=== PATIENT | male | born 1965 | race Caucasian/White ===

== ENCOUNTER 2021-08-30 17:19 | Inpatient (IN) | payer MEDICAID ==
[~2021-08-30] VITALS: Ht 180.3 cm; Wt 104.5 kg
[~2021-08-30 17:19] MED LIST: HYDR25SU33 RC
[2021-08-30 18:16] LABS: BASOPHILS # (AUTO) 0.1 X10'3 (0-0.2); BASOPHILS % (AUTO) 0.8 % (0-1); EOSINOPHILS # (AUTO) 0.1 X10'3 (0-0.9); EOSINOPHILS % (AUTO) 1.5 % (0-6); HEMATOCRIT 49.5 % (42.0-52.0); HEMOGLOBIN 16.4 g/dl (14.0-17.9); LYMPHOCYTES # (AUTO) 2.4 X10'3 (1.1-4.8); LYMPHOCYTES % (AUTO) 28.1 % (21-51); MEAN CORPUSCULAR HEMOGLOBIN 29.8 PG (27.0-31.0); MEAN CORPUSCULAR HGB CONC 33.2 g/dL (33.0-36.5); MEAN CORPUSCULAR VOLUME 89.7 FL (78-98); MEAN PLATELET VOLUME 8.1 FL (7.4-10.4); MONOCYTES % (AUTO) 11.7 % (2-12); NEUTROPHILS # (AUTO) 4.9 X10'3 (1.8-7.7); NEUTROPHILS % (AUTO) 57.9 % (42-75); PLATELET COUNT 195 X10'3 (140-440); RED BLOOD COUNT 5.52 X10'6 (4.70-6.10); RED CELL DISTRIBUTION WIDTH 14.8 % (11.5-14.5); WHITE BLOOD COUNT 8.4 X10'3 (4.5-11.0)
[2021-08-30 18:32] LABS: ALANINE AMINOTRANSFERASE 69 U/L (12-78); ALBUMIN/GLOBULIN RATIO 1.3 (1.1-1.5); ALKALINE PHOSPHATASE 48 IU/L (46-116); ANION GAP 3 (8-16); ASPARTATE AMINO TRANSFERASE 31 U/L (10-37); BILIRUBIN,TOTAL 0.3 MG/DL (0.1-1.0); BLOOD UREA NITROGEN 11 MG/DL (7-18); BUN/CREATININE RATIO 9.9 (5.4-32.0); CALCIUM 9.3 MG/DL (8.5-10.1); CHLORIDE 105 MMOL/L (99-107); CREATININE 1.11 MG/DL (0.60-1.10); GLUCOSE 90 MG/DL (70-104); POTASSIUM 3.9 MMOL/L (3.5-5.1); SODIUM 137 MMOL/L (135-145); TOTAL CARBON DIOXIDE 29.5 MMOL/L (24-32); TOTAL PROTEIN 7.2 G/DL (6.4-8.2); eGFR 69 ML/MIN
--- NOTE | 2021-08-30 20:22 | NUR ---
RN agrees with cash posting representative assesment
[2021-08-30] MEDS ORDERED: aspirin 325mg tablet PO ONE (21:10)
[2021-08-30] MEDS ORDERED: LORazepam 0.5 MG tablet PO PRN (21:15)
[2021-08-30] MEDS ORDERED: OMEP40CA21 PO (22:22)
[2021-08-30] MEDS ORDERED: ANAS1TAB49 PO (22:22)
[2021-08-30] MEDS ORDERED: diphenhydrAMINE 25mg capsule PO ONE (23:40)
[2021-08-31] VITALS (16 sets, daily range): BP systolic 135–163; BP diastolic 73–106
[2021-08-31] MEDS ORDERED: PERFLUTREN PROTEIN-A MICROSPHR (Optison) 0.22 MG/ML 3ML VIAL IV PRN (00:25)
[2021-08-31] MEDS ORDERED: magnesium 2GM in 50ml NS 50 ML IV PRN (00:25)
[2021-08-31] MEDS ORDERED: POTASSIUM BICARB 20meq eff tab 20 MEQ TABLET.EFF PO PRN ×2 (00:25)
[2021-08-31] MEDS ORDERED: potassium CL 10mEq/100ml bag 100 ML IV PRN (00:25)
[2021-08-31] MEDS ORDERED: magnesium 4gm in 100ml NS 100 ML IV PRN (00:25)
[2021-08-31] MEDS ORDERED: magnesium hydroxide 30ml (MOM) UD suspension PO PRN (00:25)
[2021-08-31] MEDS ORDERED: magnesium Cl slow-release 64mg tablet PO PRN (00:25)
[2021-08-31] MEDS ORDERED: mag hydrox/Alum hydrox/simeth 30ml oral suspension PO PRN (00:25)
[2021-08-31] MEDS ORDERED: nitroGLYCERIN 0.4mg SUBLingual tab SL PRN (00:30)
[2021-08-31] MEDS ORDERED: metoprolol tartrate 1mg/ml inj IV PRN (00:30)
[2021-08-31] MEDS ORDERED: regadenoson 0.4mg/5ml syringe IV PRN (00:30)
[2021-08-31] MEDS ORDERED: aminophylline 250mg/10ml inj. IV PRN (00:30)
[2021-08-31 01:59] LABS: MAGNESIUM 1.7 MG/DL (1.5-2.4); POTASSIUM 3.7 MMOL/L (3.5-5.1)
[2021-08-31 02:23] LABS: HEMOGLOBIN A1C 5.7 % (4.5-6.2)
--- NOTE | 2021-08-31 06:55 | NUR ---
PT UPDATED ON PLAN OF CARE AND PT AWARE OF NPO STATUS AND TO HAVE STRESS TEST THIS AM.
[2021-08-31] MEDS ORDERED: pantoprazole 40mg Tablet.DR PO SCH (07:30)
[2021-08-31] MEDS ORDERED: heparin, porcine 5000 units/ml vial SQ SCH (08:00)
[2021-08-31] MEDS ORDERED: docusate sod 100mg capsule PO SCH (08:00)
[2021-08-31] MEDS ORDERED: K and/or MAG REPLACEMENT MC SCH (08:00)
--- NOTE | 2021-08-31 09:05 | NUR ---
PT TAKEN TO HAVE STRESS TEST, AM MEDS WILL BE GIVEN WHEN PT RETURNS.
[2021-08-31] MEDS ORDERED: HYDR-3972 PO (13:58)
--- NOTE | 2021-08-31 14:07 | NUR ---
patient moved to short stay 34b
--- NOTE | 2021-08-31 14:34 | NUR ---
VS stable as charted. Pt denies pain, cp or sob at this time. Pt in bed and eating lunch tray.
[2021-08-31] MEDS ORDERED: amLODIPine 5mg tablet PO ONE (14:50)
--- NOTE | 2021-08-31 15:24 | NUR ---
Pt refusing bp medication at this time. VS stable as charted. Will continue to monitor.
--- NOTE | 2021-08-31 16:24 | NUR ---
Pt had food brought in from his brother. Pt denies cp, denies sob. Pt vs stable as charted. Will continue to monitor.
--- NOTE | 2021-08-31 16:30 | NUR ---
Late entry, Problems reprioritized. Patient report given, questions answered & plan of care reviewed with Va Castillo RN.
[2021-08-31] MEDS ORDERED: LISI2.5T14 PO ×2 (18:03)
[2021-08-31] MEDS ORDERED: AMLO5TAB4 PO (18:03)
[2021-08-31] MEDS ORDERED: LISI40TA13 PO (18:03)
--- NOTE | 2021-08-31 18:05 | NUR ---
Dr. Do here, reviewing tests that pt received.
--- NOTE | 2021-08-31 18:25 | NUR ---
DC instructions given to pt, verbalizes understanding. PIV DC cath intact. Pt amb to lobby awaiting ride home.
[2021-08-31] MEDS ORDERED: hydrALAZINE 20mg/ml inj. IV PRN (19:30)
== END 2021-08-31 18:16 | disposition home or self-care (01) | DRG 861 ==
LOC: ER 17:20 → OBSVTOIN 08-31 00:26 → ED HOLD 08-31 00:26
PROVIDERS: ADMIT Internal Medicine; ATTEND Family Medicine
DX: R79.89 Other specified abnormal findings of blood chemistry (principal); F43.10 Post-traumatic stress disorder, unspecified; I10 Essential (primary) hypertension
CPT/HCPCS: 36415; 71045; 78452; 80053; 83036; 83735; 83880; 84132; 84484; 85025; 93017; 93306; 99285; A9500; G0378; J1644; J2785; Q0163

== ENCOUNTER 2021-11-29 12:02 | Emergency (ER) | payer MEDICAID ==
[~2021-11-29] VITALS: Ht 180.3 cm; Wt 100.0 kg
[~2021-11-29 12:02] MED LIST changes: +AMLO5TAB4 PO; +HYDR-3972 PO; -HYDR25SU33 RC; +OMEP40CA21 PO
[2021-11-29 12:35] VITALS: BP 140/93
== END 2021-11-29 14:36 | disposition home or self-care (01) ==
LOC: ER 12:03
DX: T50.901A Poisoning by unspecified drugs, medicaments and biological substances, accidental (unintentional), initial encounter (principal); Y92.89 Other specified places as the place of occurrence of the external cause
CPT/HCPCS: 99281

== ENCOUNTER 2022-01-18 12:51 | Emergency (ER) | payer MEDICAID ==
[~2022-01-18] VITALS: Ht 180.3 cm; Wt 97.7 kg
[2022-01-18 13:31] VITALS: BP 163/109
[2022-01-18 15:36] LABS: ALANINE AMINOTRANSFERASE 90 U/L (12-78); ALBUMIN/GLOBULIN RATIO 1.1 (1.1-1.5); ALKALINE PHOSPHATASE 56 IU/L (46-116); ANION GAP 7 (8-16); ASPARTATE AMINO TRANSFERASE 43 U/L (10-37); BILIRUBIN,TOTAL 0.4 MG/DL (0.1-1.0); BLOOD UREA NITROGEN 15 MG/DL (7-18); BUN/CREATININE RATIO 13.6 (5.4-32.0); CALCIUM 9.2 MG/DL (8.5-10.1); CHLORIDE 105 MMOL/L (99-107); GLUCOSE 85 MG/DL (70-104); POTASSIUM 4.1 MMOL/L (3.5-5.1); SODIUM 144 MMOL/L (135-145); TOTAL CARBON DIOXIDE 32.2 MMOL/L (24-32); TOTAL PROTEIN 7.6 G/DL (6.4-8.2); eGFR 69 ML/MIN
[2022-01-18 15:41] LABS: EOSINOPHILS # (AUTO) 0.1 X10'3 (0-0.9); MEAN CORPUSCULAR HGB CONC 33.7 g/dL (33.0-36.5); MEAN PLATELET VOLUME 7.7 FL (7.4-10.4); MONOCYTES # (AUTO) 0.9 X10'3 (0-0.9); NEUTROPHILS # (AUTO) 3.6 X10'3 (1.8-7.7)
[2022-01-18 15:42] LABS: BASOPHILS % (AUTO) 0.4 % (0-1); EOSINOPHILS % (AUTO) 1.3 % (0-6); HEMATOCRIT 51.5 % (42.0-52.0); HEMOGLOBIN 17.4 g/dl (14.0-17.9); LYMPHOCYTES # (AUTO) 3.3 X10'3 (1.1-4.8); LYMPHOCYTES % (AUTO) 41.7 % (21-51); MEAN CORPUSCULAR HEMOGLOBIN 29.3 PG (27.0-31.0); NEUTROPHILS % (AUTO) 45.6 % (42-75); PLATELET COUNT 223 X10'3 (140-440); RED BLOOD COUNT 5.92 X10'6 (4.70-6.10); RED CELL DISTRIBUTION WIDTH 17.3 % (11.5-14.5)
[2022-01-18] MEDS ORDERED: LORazepam 1 MG tablet PO ONE (16:30)
== END 2022-01-18 16:47 | disposition home or self-care (01) ==
LOC: ER 12:51
DX: R20.0 Anesthesia of skin (principal); I10 Essential (primary) hypertension; K59.00 Constipation, unspecified; Z79.899 Other long term (current) drug therapy
CPT/HCPCS: 36415; 80053; 84439; 84443; 85025; 93005; 99283; 99284

== ENCOUNTER 2022-04-14 05:44 | Emergency (ER) | payer MEDICAID ==
[~2022-04-14] VITALS: Ht 180.3 cm; Wt 105.3 kg
[2022-04-14 05:49] VITALS: BP 193/100
[2022-04-14 06:24] LABS: BASOPHILS # (AUTO) 0.1 X10'3 (0-0.2); EOSINOPHILS # (AUTO) 0.2 X10'3 (0-0.9); EOSINOPHILS % (AUTO) 1.9 % (0-6); HEMOGLOBIN 16.9 g/dl (14.0-17.9); LYMPHOCYTES # (AUTO) 2.8 X10'3 (1.1-4.8); LYMPHOCYTES % (AUTO) 32.3 % (21-51); MEAN CORPUSCULAR HEMOGLOBIN 29.5 PG (27.0-31.0); MEAN CORPUSCULAR HGB CONC 33.1 g/dL (33.0-36.5); MEAN CORPUSCULAR VOLUME 89.2 FL (78-98); MEAN PLATELET VOLUME 8.5 FL (7.4-10.4); MONOCYTES # (AUTO) 0.8 X10'3 (0-0.9); MONOCYTES % (AUTO) 9.5 % (2-12); NEUTROPHILS # (AUTO) 4.8 X10'3 (1.8-7.7); NEUTROPHILS % (AUTO) 55.3 % (42-75); PLATELET COUNT 207 X10'3 (140-440); RED BLOOD COUNT 5.72 X10'6 (4.70-6.10); RED CELL DISTRIBUTION WIDTH 15.9 % (11.5-14.5); WHITE BLOOD COUNT 8.7 X10'3 (4.5-11.0)
[2022-04-14 06:27] LABS: CLARITY,URINE CLEAR (Clear); COLOR,URINE YELLOW (Yellow); GLUCOSE, URINE NEGATIVE (Neg); KETONES,URINE NEGATIVE (Neg); LEUKOCYTE ESTERASE ,URINE NEGATIVE (Neg); NITRITES, URINE NEGATIVE (Neg); OCCULT BLOOD,URINE LARGE (Neg); PH,URINE 5.5 (4.8-8.0); PROTEIN,URINE NEGATIVE (Neg); UROBILINOGEN,URINE 0.2 E.U/dL (0.2-1.0)
[2022-04-14 06:33] LABS: ALANINE AMINOTRANSFERASE 93 U/L (12-78); ALBUMIN 3.9 G/DL (3.4-5.0); ALBUMIN/GLOBULIN RATIO 1.2 (1.1-1.5); ALKALINE PHOSPHATASE 54 IU/L (46-116); AMYLASE 39 U/L (25-115); ANION GAP 8 (8-16); ASPARTATE AMINO TRANSFERASE 41 U/L (10-37); BILIRUBIN,TOTAL 0.8 MG/DL (0.1-1.0); BLOOD UREA NITROGEN 16 MG/DL (7-18); BUN/CREATININE RATIO 15.2 (5.4-32.0); CHLORIDE 106 MMOL/L (99-107); CREATININE 1.05 MG/DL (0.60-1.10); GLUCOSE 182 MG/DL (70-104); LIPASE 124 U/L (73-393); POTASSIUM 4.5 MMOL/L (3.5-5.1); SODIUM 139 MMOL/L (135-145); TOTAL CARBON DIOXIDE 25.1 MMOL/L (24-32); TOTAL PROTEIN 7.1 G/DL (6.4-8.2); eGFR 73 ML/MIN
[2022-04-14 06:37] LABS: UA COLLECTION TYPE CLN CATCH MIDSTREAM
[2022-04-14 06:39] LABS: BACTERIA,URINE NONE SEEN /HPF (Neg); MUCUS STRANDS NONE SEEN /LPF (Neg); RBC,URINE 50-100 /HPF (0-2); SQUAMOUS EPITHELIAL CELL,UR FEW /LPF (FEW); WBC,URINE 0-4 /HPF (0-4)
[2022-04-14] MEDS ORDERED: normal saline 1000ML IV soln IVB ONE (12:15)
[2022-04-14] MEDS ORDERED: ketorolac trometh. 30mg/ml inj. IV ONE (12:15)
[2022-04-14] MEDS ORDERED: meperidine/PF 50mg/ml syringe IV ONE (13:10)
[2022-04-14] MEDS ORDERED: TADA5TAB2 PO ×3 (14:06→15:15)
[2022-04-14] MEDS ORDERED: HYDR-3965 PO ×3 (14:06→15:15)
[2022-04-14] MEDS ORDERED: NAPR-56 PO ×3 (14:06→15:15)
== END 2022-04-14 18:26 | disposition home or self-care (01) ==
LOC: ER 05:45
DX: N23 Unspecified renal colic (principal); I10 Essential (primary) hypertension; Z79.899 Other long term (current) drug therapy
CPT/HCPCS: 36415; 74176; 80053; 81001; 82150; 83690; 85025; 96374; 96375; 99284; J1885; J2175; J7030

== ENCOUNTER 2024-01-19 07:16 | Day surgery (SDC) | payer MEDICAID ==
[2024-01-17 11:05] LABS: BASOPHILS # (AUTO) 0.1 X10'3 (0-0.2); BASOPHILS % (AUTO) 0.9 % (0-1); EOSINOPHILS # (AUTO) 0.1 X10'3 (0-0.9); EOSINOPHILS % (AUTO) 1.8 % (0-6); LYMPHOCYTES # (AUTO) 2.1 X10'3 (1.1-4.8); LYMPHOCYTES % (AUTO) 35.4 % (21-51); MEAN CORPUSCULAR HEMOGLOBIN 31.1 PG (27.0-31.0); MEAN CORPUSCULAR HGB CONC 33.3 g/dL (33.0-36.5); MEAN CORPUSCULAR VOLUME 93.4 FL (78-98); MEAN PLATELET VOLUME 7.9 FL (7.4-10.4); MONOCYTES # (AUTO) 0.7 X10'3 (0-0.9); MONOCYTES % (AUTO) 11.5 % (2-12); NEUTROPHILS % (AUTO) 50.4 % (42-75); PRE OP HEMATOCRIT 53.3 % (42.0-52.0); PRE OP HEMOGLOBIN 17.7 g/dL (14.0-17.9); PRE OP PLATELET COUNT 212 X10'3 (140-440); RED BLOOD COUNT 5.71 X10'6 (4.70-6.10); RED CELL DISTRIBUTION WIDTH 14.5 % (11.5-14.5)
[2024-01-17 11:24] LABS: ALBUMIN 3.8 G/DL (3.4-5.0); ALBUMIN/GLOBULIN RATIO 1.1 (1.1-1.5); ALKALINE PHOSPHATASE 63 IU/L (46-116); BLOOD UREA NITROGEN 15 MG/DL (7-18); BUN/CREATININE RATIO 14.2 (10.0-20.0); CHLORIDE 108 MMOL/L (99-107); CREATININE 1.06 MG/DL (0.60-1.10); PRE OP ANION GAP 8 (8-16); PRE OP AST 57 U/L (10-37); PRE OP BILIRUB, TOTAL 1.1 MG/DL (0.0-1.0); PRE OP GLUCOSE 167 MG/DL (70-104); PRE OP SODIUM 143 MMOL/L (135-145); TOTAL CARBON DIOXIDE 27.5 MMOL/L (24-32); TOTAL PROTEIN 7.3 G/DL (6.4-8.2); eGFR 72 ML/MIN
[2024-01-17 11:27] LABS: PRE OP ALT 96 U/L (30-65); PRE OP POTASSIUM 4.4 MMOL/L (3.4-5.1)
[~2024-01-19] VITALS: Ht 180.3 cm; Wt 108.5 kg
[2024-01-19] VITALS (10 sets, daily range): BP systolic 118–143; BP diastolic 84–99; PULSE 65–72; RESP 12–18; TEMP 98.1; O2SAT 93–97
[2024-01-19] MEDS: cefazolin 2gm/D5W 100mL 100 ML IV ONE (05:30)
[~2024-01-19 07:16] MED LIST changes: -AMLO5TAB4 PO; +ANAS1TAB10 PO; -OMEP40CA21 PO; +SEMA0.258
[2024-01-19] MEDS: famotidine 20mg tablet PO ONE (08:47)
[2024-01-19] MEDS: ringers solution, lacted 1,000 ML IV SCH (08:47)
[2024-01-19] MEDS ORDERED: meperidine/PF 25mg/ml syringe IV PRN ×3 (09:00)
[2024-01-19] MEDS ORDERED: ringers solution, lacted 1,000 ML IV SCH (09:00)
[2024-01-19] MEDS ORDERED: morphine 2 MG/ML inj. syringe IV PRN (09:00)
[2024-01-19] MEDS ORDERED: proCHLORperazine 10 MG/2 ml inj IV PRN (09:00)
[2024-01-19] MEDS ORDERED: ondansetron/PF 4mg/2ml inj IV PRN (09:00)
[2024-01-19] MEDS ORDERED: morphine 4 MG/ML inj SYRINge IV PRN (09:00)
[2024-01-19] MEDS ORDERED: LIDOcaine 2% (20mg/ml) 5ml vial ONE (09:34)
[2024-01-19] MEDS ORDERED: BUPIVAcaine/PF 2.5mg/ml (0.25%) 10ml vial ONE (09:35)
[2024-01-19] MEDS ORDERED: fentaNYL/PF 50MCG/1 ML 2ML syringe ONE (09:44)
[2024-01-19] MEDS ORDERED: midazolam 1 mg/ML 2ml injection ONE (09:45)
[2024-01-19] MEDS ORDERED: propofol inj 20 ML IV ONE (10:12)
== END 2024-01-19 11:26 | disposition home or self-care (01) ==
LOC: PAS 07:16
PROVIDERS: ATTEND Orthopaedic Surgery Hand Surgery
DX: G56.01 Carpal tunnel syndrome, right upper limb (principal); M65.331 Trigger finger, right middle finger; M65.341 Trigger finger, right ring finger; M65.351 Trigger finger, right little finger; E11.9 Type 2 diabetes mellitus without complications; E66.9 Obesity, unspecified; Z79.84 Long term (current) use of oral hypoglycemic drugs; Z79.891 Long term (current) use of opiate analgesic; Z79.899 Other long term (current) drug therapy; Z98.890 Other specified postprocedural states; Z68.33 Body mass index [BMI] 33.0-33.9, adult
CPT/HCPCS: 26055; 29848; 36415; 80053; 85025; 93005; J0690; J2250; J2704; J3010; J3490; J7030; J7120; Z7506; Z7512; A4215; A6449; A7000